=== PATIENT | female | born 1975 | race Hispanic/Latino ===

== ENCOUNTER → 2016-08-10 | Outpatient (CLI) | payer OTHER ==
--- NOTE | 2016-08-10 09:50 | REPMRS ---
Patient History The patient states she has not had a clinical breast exam in over a year. Patient is nulliparous. Family history of colorectal cancer in paternal uncle at age 50 or over. Taking estrogen for 5 years. Digital Mammo Screening Bilat: August 10, 2016 - Exam #: [id number] Bilateral CC and MLO view(s) were taken. Technologist: Rylee Werner, Technologist No prior studies available for comparison. FINDINGS: The breast tissue is almost entirely fat. There is no evidence of dominant mass, architectural distortion, or clustered microcalcification typical of malignancy. ASSESSMENT: BI-RADS/ACR category 1 mammogram. Negative. Recommendation Routine screening mammogram in 1 year (for women over age 40). This mammogram was interpreted with the aid of an FDA-approved computer-aided dectection system. Electronically Signed By: Eddie Marte MD 08/10/16 0946
== END ==
LOC: M RAD 09:04
PROVIDERS: ATTEND Family Medicine
DX: Z12.31 Encounter for screening mammogram for malignant neoplasm of breast (principal)